=== PATIENT | female | born 1945 | race Caucasian/White ===

== ENCOUNTER 2017-01-09 10:32 | Day surgery (SDC) | payer MEDICARE, OTHER ==
[~2017-01-09 10:32] MED LIST: Lactated Ringers 1,000 ML IV SCH; Sodium Chloride 0.9% 10 ML Syringe FLUSH PRN
[2017-01-09] MEDS ORDERED: Propofol 200 MG/20 ML SDV ONE ×2 (11:56→12:13)
[2017-01-09] MEDS ORDERED: Ondansetron 4 MG/2 ML SDV ONE (12:10)
[2017-01-09 13:56] VITALS: BP 114/60
--- NOTE | 2017-01-10 10:38 | OR ---
PREOPERATIVE DIAGNOSIS: Persistent dyspepsia. POSTOPERATIVE DIAGNOSIS: Essentially normal exam of the esophagus, stomach, and duodenum. Biopsies pending. PROCEDURE PROPOSED: Upper gastrointestinal panendoscopy with antral biopsies. PROCEDURE DONE: Upper gastrointestinal panendoscopy with antral biopsies. INDICATION: This is a 71-year-old female bothered with some persistent upper abdominal pain. She has been on antacid medications. She also had her gallbladder evaluated, which was unremarkable and it was felt that she should be gastroscoped to rule out any significant pathology. DESCRIPTION OF OPERATION: The patient brought to the endoscopy suite, placed in left lateral decubitus position. She was sedated with propofol per the STRUCTURES MECHANIC. The flexible video gastroscope was then passed transorally, and under visualization, was advanced well into the duodenum. The duodenal and duodenal bulb were unremarkable. The antrum and body of the stomach looked quite normal and healthy without inflammation or ulceration. The GE junction did not reveal any significant hiatal hernia and the GE junction itself was well demarcated without GERD. There were no signs of any Schatzki's ring or stenosis and the remainder of the esophagus was normal. A couple of antral biopsies were taken to rule out H. pylori. She tolerated the procedure very well. FINAL IMPRESSION: Essentially normal exam of the esophagus, stomach, and duodenum. Antral biopsies pending. PLAN: She may need to have a CAT scan of her abdomen for further evaluation and should follow up with her family physician. SCM: 01/09/2017 13:01:41 MODL: 01/09/2017 13:46:29 /[id number]
--- NOTE | 2017-01-22 11:48 | LETTER ---
01/21/2017 Susan Ames RE: SUSAN AMES : 1945 Dear Susan, The biopsy taken from your stomach revealed no evidence of any bacteria presence in our stomach. It did show that you have some very mild gastritis. I feel that you should continue taking your medicine, and if you continue to have a lot of pain, you may want to see your family physician and possibly have a CAT scan done of your abdomen. Respectfully,
== END 2017-01-09 14:08 | disposition home or self-care (01) ==
LOC: VM.SDS 10:32
PROVIDERS: ATTEND Surgery
DX: K29.50 Unspecified chronic gastritis without bleeding (principal); E03.9 Hypothyroidism, unspecified; E78.5 Hyperlipidemia, unspecified; G25.81 Restless legs syndrome; Z98.890 Other specified postprocedural states; Z98.49 Cataract extraction status, unspecified eye; Z88.5 Allergy status to narcotic agent; Z88.8 Allergy status to other drugs, medicaments and biological substances; Z79.899 Other long term (current) drug therapy
CPT/HCPCS: 00740; 43239; 88305; 88342; J2704; J7120; J2405

== ENCOUNTER 2017-02-27 07:59 | Day surgery (SDC) | payer MEDICARE, OTHER ==
[~2017-02-27 07:59] MED LIST changes: -Sodium Chloride 0.9% 10 ML Syringe FLUSH PRN
[2017-02-27] MEDS ORDERED: Citric Acid/Sodium Citrate Solution 30 ML Cup PO ONE (08:17)
[2017-02-27] MEDS ORDERED: fentaNYL 100 MCG/2 ML SDV ONE (09:15)
[2017-02-27] MEDS ORDERED: Propofol 200 MG/20 ML SDV ONE (09:15)
[2017-02-27] MEDS ORDERED: Ondansetron 4 MG/2 ML SDV ONE (09:16)
[2017-02-27 10:55] VITALS: BP 121/67
--- NOTE | 2017-02-28 08:24 | OR ---
PREOPERATIVE DIAGNOSIS: Abnormal CT scan, sigmoid thickening. POSTOPERATIVE DIAGNOSIS: Sigmoid diverticulosis, otherwise, normal exam. PROCEDURE PROPOSED: Total flexible colonoscopy. PROCEDURE DONE: Total flexible colonoscopy. INDICATION: This is a 71-year-old female, known to me from previous EGD and is also lined up for a lap joceline later this month, but she had an abnormal CT scan showing thickening of the sigmoid colon. It is felt that needs to be evaluated prior to her gallbladder surgery to make sure there is nothing worrisome going on. She did have a colonoscopy 3 years ago and she does have some known diverticular disease. TECHNIQUE AND FINDINGS: The patient brought to the endoscopy suite, placed in left lateral decubitus position. She was sedated per MIS MANAGER with propofol. The flexible video colonoscope was then passed transanally, and under visualization, it advanced to the cecum. Examination revealed a normal ascending, transverse, descending colon. The sigmoid colon revealed moderate diverticulosis with some tortuosity, but no unusual swelling, edema, or thickening noted internally, and there are no signs of any polyps or masses, and the rectum was also normal and the scope was then withdrawn. The patient tolerated procedure well. FINAL IMPRESSION: Sigmoid diverticulosis, otherwise normal exam. PLAN: The patient will be reassured that there is nothing worrisome with her colon and she will procedure gallbladder surgery later this month and probably should have 1 more colonoscopy in 5 years. SCM: 02/27/2017 10:20:10 MODL: 02/27/2017 15:14:20 /[id number]
== END 2017-02-27 11:50 | disposition home or self-care (01) ==
LOC: VM.SDS 07:59
PROVIDERS: ATTEND Surgery
DX: K57.30 Diverticulosis of large intestine without perforation or abscess without bleeding (principal); E78.5 Hyperlipidemia, unspecified; Z88.8 Allergy status to other drugs, medicaments and biological substances; Z98.890 Other specified postprocedural states; Z79.899 Other long term (current) drug therapy; Z98.51 Tubal ligation status; Z79.82 Long term (current) use of aspirin
CPT/HCPCS: 00810; 45378; A9270; J2405; J2704; J3010; J7120

== ENCOUNTER 2017-03-19 07:01 | Day surgery (SDC) | payer MEDICARE, OTHER ==
[2017-03-19] MEDS ORDERED: Dexamethasone 10 MG/ML SDV ONE (07:23)
[2017-03-19] MEDS ORDERED: fentaNYL 100 MCG/2 ML SDV ONE ×2 (07:23→09:22)
[2017-03-19] MEDS ORDERED: Ondansetron 4 MG/2 ML SDV ONE (07:23)
[2017-03-19] MEDS ORDERED: Propofol 200 MG/20 ML SDV ONE (07:23)
[2017-03-19] MEDS ORDERED: Ketorolac 30 MG/ML SDV ONE (07:23)
[2017-03-19] MEDS: Lactated Ringers 1,000 ML IV SCH ×2 (07:43→11:39)
[2017-03-19] MEDS ORDERED: Bupivacaine 0.25%/EPINEPHrine 1:200,000 30 ML SDV ONE (08:10)
[2017-03-19] MEDS ORDERED: Acetaminophen 1,000 MG/100 ML Infusion Bottle IV ONE (08:31)
[2017-03-19] MEDS ORDERED: Rocuronium 50 MG/5 ML Vial ONE ×2 (08:31→08:40)
[2017-03-19] MEDS ORDERED: ceFAZolin 1 GM Vial ONE (09:04)
[2017-03-19] MEDS ORDERED: Bupivacaine 0.25%/EPINEPHrine 1:200,000 30 ML SDV INFILT ONE (09:10)
[2017-03-19] MEDS ORDERED: Glycopyrrolate 0.2 MG/ML 2 ML SDV ONE (09:28)
[2017-03-19] MEDS ORDERED: Neostigmine Methylsulfate 10 MG/10 ML MDV ONE (09:28)
[2017-03-19] MEDS ORDERED: Promethazine Topical Gel 0.5 ML Syringe ONE (12:20)
[2017-03-19] MEDS ORDERED: Promethazine Topical Gel 0.5 ML Syringe TOP ONE (12:27)
[2017-03-19 12:47] VITALS: BP 120/59
--- NOTE | 2017-03-19 13:36 | OR ---
PREOPERATIVE DIAGNOSIS: Symptomatic cholelithiasis. POSTOPERATIVE DIAGNOSES: 1. Symptomatic cholelithiasis. 2. Cholesterolosis. PROCEDURE PROPOSED: Laparoscopic cholecystectomy. PROCEDURE DONE: Laparoscopic cholecystectomy. GASTROENTEROLOGIST: parag Sousa. INDICATION: This is a 71-year-old female bothered with epigastric pressure, bloating. It was found on CT scan that multiple gallstones and she comes in now for recommended laparoscopic cholecystectomy. TECHNIQUE: The patient was brought to the operative suite, given a general endotracheal anesthetic. The abdomen was then sterilely prepped and draped. The Veress needle was inserted through the infraumbilical region and pneumoperitoneum was established followed by insertion of a 10 mm trocar. The video endoscope was inserted. Three other 5 mm trocars were inserted across the upper right abdomen under visualization. The gallbladder was found to have multiple adhesions to it, which were taken down by blunt dissection. The gallbladder was then retracted cephalad. The cystic duct was dissected free from the surrounding structures, was doubly wet clipped and divided. Cystic artery likewise was doubly wet clipped and divided. The gallbladder was then removed in an anterograde fashion from the liver bed with hook cautery technique. The liver bed was inspected and irrigated and good hemostasis was assured. There was essentially very minimal blood loss with this procedure. The gallbladder was then placed into a specimen bag and brought out through the infraumbilical port without any further extension and the pneumoperitoneum was then deflated, and the skin incisions were closed with interrupted 4-0 subcuticular Vicryl stitches. Bandages were applied. She tolerated the procedure well and was awakened and taken to the recovery room in good condition. SCM: 03/19/2017 09:46:04 MODL: 03/19/2017 13:19:00 /[id number]
== END 2017-03-19 13:25 | disposition home or self-care (01) ==
LOC: VM.SDS 07:01
PROVIDERS: ATTEND Surgery
DX: K81.1 Chronic cholecystitis (principal); E78.5 Hyperlipidemia, unspecified; E03.9 Hypothyroidism, unspecified; M19.90 Unspecified osteoarthritis, unspecified site; M81.0 Age-related osteoporosis without current pathological fracture; G25.81 Restless legs syndrome; D50.9 Iron deficiency anemia, unspecified; Z86.010 Personal history of colon polyps; Z87.891 Personal history of nicotine dependence; Z79.82 Long term (current) use of aspirin; Z79.899 Other long term (current) drug therapy; Z88.5 Allergy status to narcotic agent; Z88.8 Allergy status to other drugs, medicaments and biological substances; Z98.51 Tubal ligation status; Z98.41 Cataract extraction status, right eye; Z98.42 Cataract extraction status, left eye; Z90.89 Acquired absence of other organs; Z98.890 Other specified postprocedural states; Z87.442 Personal history of urinary calculi
CPT/HCPCS: 00740; 00790; 47562; A9270; J0690; J1100; J1885; J2405; J2704; J2710; J3010; J7120; 88304; J3490

== ENCOUNTER 2018-07-07 06:40 | Day surgery (SDC) | payer MEDICARE, OTHER ==
[2018-07-07] MEDS ORDERED: Lactated Ringers 1,000 ML IV SCH (07:00)
[2018-07-07] MEDS ORDERED: Sodium Chloride 0.9% 10 ML Syringe FLUSH PRN (07:00)
[2018-07-07] MEDS ORDERED: fentaNYL 100 MCG/2 ML SDV ONE (07:51)
[2018-07-07] MEDS ORDERED: Propofol 200 MG/20 ML SDV ONE (07:51)
[2018-07-07] MEDS ORDERED: Dexamethasone 10 MG/ML SDV ONE (07:51)
[2018-07-07] MEDS ORDERED: Ondansetron 4 MG/2 ML SDV ONE (07:51)
--- NOTE | 2018-07-07 09:25 | OR ---
PREOPERATIVE DIAGNOSES: Dysphagia and epigastric discomfort. POSTOPERATIVE DIAGNOSIS: Mild antritis, otherwise normal exam. PROCEDURE PROPOSED: Upper gastrointestinal panendoscopy with antral biopsies. PROCEDURE DONE: Upper gastrointestinal panendoscopy with antral biopsies. INDICATION: This is a 72-year-old female, who has been having some dysphagia problems, some epigastric pain, and also some anemia. It is felt that she should be gastroscoped to rule out significant pathology. TECHNIQUE: The patient was brought to the endoscopy suite, placed in left lateral decubitus position. She was sedated per GEOSPATIAL INFORMATION TECHNOLOGIST with propofol. The flexible video gastroscope was then passed transorally and under visualization advanced well into the duodenum. The duodenum and duodenal bulb were unremarkable. The antrum revealed streaks of redness compatible with an antritis. There was no actual ulceration. The body of the stomach otherwise looked quite healthy and the GE junction did not reveal any significant hiatal hernia or evidence of stenosis or Schatzki's ring. The GE junction appeared to be well demarcated without worrisome abnormality and the remainder of the esophagus was normal as the scope was then withdrawn. She tolerated the procedure well. FINAL IMPRESSION: Antritis. PLAN: The patient recently got started on omeprazole and should continue to take that on daily basis. She needs to avoid caffeine, alcohol, ibuprofen, and nicotine and follow up with her PCP as needed for further problems. SCM: 07/07/2018 08:59:16 MODL: 07/07/2018 09:20:05 /[id number]
[2018-07-07] MEDS ORDERED: Ondansetron 4 MG/2 ML SDV IVPUSH SCH (10:00)
[2018-07-07] MEDS ORDERED: Promethazine Topical Gel 0.5 ML Syringe TOP PRN (10:02)
[2018-07-07] MEDS ORDERED: Promethazine Topical Gel 0.5 ML Syringe TOP ONE (10:03)
[2018-07-07 10:59] VITALS: BP 134/68
== END 2018-07-07 11:45 | disposition home or self-care (01) ==
LOC: VM.SDS 06:40
PROVIDERS: ATTEND Surgery
DX: R13.10 Dysphagia, unspecified (principal); K29.60 Other gastritis without bleeding; E03.4 Atrophy of thyroid (acquired); D50.8 Other iron deficiency anemias; K21.9 Gastro-esophageal reflux disease without esophagitis; E78.00 Pure hypercholesterolemia, unspecified; Z87.891 Personal history of nicotine dependence; Z79.899 Other long term (current) drug therapy; Z88.5 Allergy status to narcotic agent; Z79.890 Hormone replacement therapy
CPT/HCPCS: 00731; 43239; A9270; J1100; J2405; J2704; J3010; J7120